=== PATIENT | female | born 1955 | race American Indian/Alaskan Native ===

== ENCOUNTER 2016-12-04 16:02 | Emergency (ER) | payer SELFPAY ==
[2016-12-04 16:37] VITALS: BP 142/90
--- NOTE | 2016-12-04 16:41 | Emergency Department Report ---
<PARIS HOLLOWAY M - Last Filed: 12/04/16 18:35> ED General Adult HPI - General Chief complaint: Abdominal Pain Stated complaint: ABD PAIN/POSS HERNIA Time Seen by Provider: 12/04/16 16:34 Source: patient Mode of arrival: Ambulatory Limitations: No Limitations - History of Present Illness Initial comments: PT states she has an umbilical hernia. PT states she first noticed the hernia in August. PT states she has surgery scheduled next month. PT states she has been told not to lift anything over 10lbs. However she has been lifting a 20 lb grandchild. PT states she has been given RX for [place] before for pain. PT states she is on Plavix due to previous CVA and is limited to what she can take for pain. PT states she is eating normally and having normal bms. MD Complaint: hernia pain -: Gradual, days(s) Location: abdomen Radiation: non-radiation Quality: sharp, constant Consistency: constant Improves with: none Worsens with: none Associated Symptoms: denies other symptoms. denies: loss of appetite, nausea/ vomiting - Related Data Previous Rx's Medication Instructions Recorded Last Taken Type HYDROcodone/APAP 5-325 [[place] 1 each PO Q6HR PRN #15 tablet 12/04/16 Unknown Rx 5/325] Allergies Allergy/AdvReac Type Severity Reaction Status Date / Time erythromycin base Allergy Nausea Verified 12/04/16 16:31 tramadol Allergy Shortness Verified 12/04/16 16:31 of Breath ED Review of Systems ROS: Stated complaint: ABD PAIN/POSS HERNIA Other details as noted in HPI Comment: All other systems reviewed and negative Constitutional: denies: chills, fever Cardiovascular: denies: chest pain Gastrointestinal: abdominal pain. denies: nausea, vomiting, diarrhea, constipation, hematemesis, hematochezia ED Past Medical Hx - Past Medical History Hx Hypertension: Yes Hx CVA: Yes - Surgical History Past Surgical History?: Yes - Medications Home Medications: Home Medications Medication Instructions Recorded Confirmed Last Taken Type HYDROcodone/APAP 5-325 [[place] 1 each PO Q6HR PRN #15 tablet 12/04/16 Unknown Rx 5/325] ED Physical Exam - General Limitations: No Limitations General appearance: alert, in no apparent distress - Head Head exam: Present: atraumatic, normocephalic - Eye Eye exam: Present: normal appearance. Absent: conjunctival injection - ENT ENT exam: Present: normal exam, normal external ear exam - Neck Neck exam: Present: normal inspection, full ROM. Absent: tenderness - Respiratory Respiratory exam: Absent: respiratory distress, wheezes, chest wall tenderness - Cardiovascular Cardiovascular Exam: Present: regular rate, normal rhythm - GI/Abdominal GI/Abdominal exam: Present: soft, tenderness (to soft umbilical hernia), normal bowel sounds. Absent: distended, guarding, rebound - Extremities Exam Extremities exam: Present: normal inspection, full ROM - Back Exam Back exam: Present: normal inspection, full ROM. Absent: tenderness, CVA tenderness (R), CVA tenderness (L) - Neurological Exam Neurological exam: Present: alert, oriented X3 - Psychiatric Psychiatric exam: Present: normal affect, normal mood - Skin Skin exam: Present: warm, dry, intact, normal color ED Course Vital Signs 12/04/16 12/04/16 16:31 18:10 Temperature 97.7 F Pulse Rate 62 Respiratory 18 20 Rate Blood Pressure 142/90 O2 Sat by Pulse 100 Oximetry - Reevaluation(s) Reevaluation #1: 12/04/16 17:52 After exam, pt states she does not want to see a QUALITY CLOTH TESTER. PT requesting to see MD, Dr Mckeon notified. Pt now states that she knows she isn't supposed to be taking other people's RXs medication but states she has been taking someone else's Tylenol #3 and she states it does not help with her pain. Reevaluation #2: 12/04/16 18:35 PT was also seen by Dr Mckeon - Pulse Oximetry Interpretation Digit-Finger Initial Pulse Oximetry Readin Actions Taken: none ED Medical Decision Making - Differential Diagnosis abd pain Critical Care Time: No Critical care attestation.: If time is entered above; I have spent that time in minutes in the direct care of this critically ill patient, excluding procedure time. ED Disposition Clinical Impression: Umbilical hernia Qualifiers: Obstruction and gangrene presence: without obstruction or gangrene Qualified Code(s): K42.9 - Umbilical hernia without obstruction or gangrene Disposition: DISCHARGED TO HOME OR SELFCARE Condition: Stable Instructions: Umbilical Hernia (ED) Additional Instructions: To medications as prescribed. hydrocodone is a narcotic and cause drowsiness and constipation. Do not drive or operate heavy machinery and take stool softeners as needed. Follow-up with the primary care doctor/clinic and surgeon provided. Prescriptions: HYDROcodone/APAP 5-325 [[place] 5/325] 1 each PO Q6HR PRN #15 tablet PRN Reason: Pain Referrals: VIVI OLIVO MD [Staff Physician] - 3-5 Days (surgeon ) TAMIKA LEBRON MD [Staff Physician] - 3-5 Days (Primary care doctor ) [facility] [Provider Group] - 3-5 Days <DONALD MCKEON - Last Filed: 12/05/16 00:37> ED Medical Decision Making - Medical Decision Making I personally evaluated patient. Patient states she has a reducible umbilical hernia and is not incarcerated. She states she's been lifting more than she should has develop worsening pain. No nausea or vomiting reported. Patient's taking Tylenol with codeine without improvement. [place] and is awaiting transfer of her Medicaid to [place] and therefore cannot see a primary care doctor or surgeon locally and therefore presents to the hospital requesting [place] for pain. I am able to push on hernia and partially reduce it. pt states it is fully reducible but it does not stay in. Dr Donald Mckeon - Differential Diagnosis abd pain , incarcerated hernia, chronic pain Critical Care Time: No ED Disposition Is pt being admited?: No Does the pt Need Aspirin: No Time of Disposition: 18:30
[2016-12-04] MEDS ORDERED: NORCO 5/325 PO ONE (18:05)
== END 2016-12-04 18:39 | disposition home or self-care (01) ==
LOC: ED 16:02
DX: K42.9 Umbilical hernia without obstruction or gangrene (principal); I10 Essential (primary) hypertension; Z86.73 Personal history of transient ischemic attack (TIA), and cerebral infarction without residual deficits
CPT/HCPCS: 99282

== ENCOUNTER 2017-12-27 02:49 | Emergency (ER) | payer SELFPAY | END 2017-12-27 03:50 | disposition left against medical advice (07) | LOC: ED 02:49 | DX: R07.9 Chest pain, unspecified (principal); Z53.21 Procedure and treatment not carried out due to patient leaving prior to being seen by health care provider | CPT/HCPCS: 93005; 93010 ==

== ENCOUNTER → 2018-01-24 | Emergency (ER) | payer SELFPAY ==
[2018-01-24 10:34] VITALS: BP 121/84
== END ==
LOC: ED 10:02
DX: R51 Headache (principal); Z53.21 Procedure and treatment not carried out due to patient leaving prior to being seen by health care provider

== ENCOUNTER 2018-02-03 10:22 | Emergency (ER) | payer MEDICAID ==
[2018-02-03 10:34] VITALS: BP 147/88
[2018-02-03] MEDS ORDERED: NORCO 5/325 PO ONE (11:57)
--- NOTE | 2018-02-03 12:04 | Emergency Department Report ---
HPI - General Chief Complaint: Dental/Oral Time Seen by Provider: 02/03/18 11:54 - HPI HPI: 62-year-old -[place] female presents to the emergency department with a complaint of lower jaw/gum pain. Patient has a history of teeth pulled and root canal but says that they left the tips of the roots in 3 places. She has an appointment with the dentist on February 10 and an appointment just before this with her quality inspector regarding whether or not to restart her blood thinners. She denies any drooling or trismus, fever, nausea or vomiting. She took a family member's Tylenol 3 and some Aleve and says that this is not been relieving her pain. ED Past Medical Hx - Past Medical History Hx Hypertension: Yes Hx CVA: Yes Hx Heart Attack/AMI: Yes - Surgical History Past Surgical History?: Yes Additional Surgical History: Breast - Social History Smoking Status: Current Every Day Smoker Substance Use Type: None - Medications Home Medications: Home Medications Medication Instructions Recorded Confirmed Last Taken Type HYDROcodone/APAP 5-325 [[place] 1 each PO Q6HR PRN #15 tablet 12/04/16 Unknown Rx 5/325] ED Review of Systems ROS: Stated complaint: FACIAL/NECK PAIN Other details as noted in HPI Comment: All other systems reviewed and negative Constitutional: denies: chills, fever Eyes: denies: eye pain, eye discharge, vision change ENT: dental pain. denies: throat pain Respiratory: denies: cough, shortness of breath, wheezing Cardiovascular: denies: chest pain, palpitations Gastrointestinal: denies: abdominal pain, nausea, diarrhea Genitourinary: denies: urgency, dysuria, discharge Musculoskeletal: denies: back pain, joint swelling, arthralgia Skin: denies: rash, lesions Neurological: denies: headache, weakness, paresthesias Physical Exam - Physical Exam Vital Signs: Vital Signs 02/03/18 10:30 Temperature 98.1 F Pulse Rate 58 L Respiratory 16 Rate Blood Pressure 147/88 O2 Sat by Pulse 99 Oximetry Physical Exam: GENERAL: The patient is well-developed well-nourished. HENT: Normocephalic. Atraumatic. Patient has moist mucous membranes. Oropharynx is clear without tonsillar hypertrophy, erythema or x-rays. The patient has no teeth in the lower jaw and I cannot see any visible root or nerve. No visible or palpable abscess. No drooling or trismus. EYES: Extraocular motions are intact. NECK: Supple. Trachea is midline. CHEST/LUNGS: Clear to auscultation. There is no respiratory distress noted. HEART/CARDIOVASCULAR: Regular. There is no tachycardia. There is no murmur. ABDOMEN: There is no abdominal distention. SKIN: There is no rash. There is no edema. There is no diaphoresis. NEURO: The patient is awake, alert, and oriented. The patient is cooperative. The patient has no focal neurologic deficits. The patient has normal speech. MUSCULOSKELETAL: There is no tenderness or deformity. There is no limitation range of motion. There is no evidence of acute injury. ED Course Vital Signs 02/03/18 10:30 Temperature 98.1 F Pulse Rate 58 L Respiratory 16 Rate Blood Pressure 147/88 O2 Sat by Pulse 99 Oximetry ED Medical Decision Making - Medical Decision Making Patient presents for pain medication as she says that she has discomfort to the lower jaw where she has some retained/exposed roots from previous root canal. I do not see any visible or palpable abscess. There is no drooling or trismus. There is no significant swelling. I cannot appreciate any retained or exposed roots. I checked the patient on the [place] prescription monitoring service and it shows that the patient has filled and been prescribed multiple scheduled narcotic medications including 1 prescription from 5 days ago in which she received 20 pills. She felt another prescription from 2 days prior to that and had another one about 1.5 weeks prior to that one. For this reason I did not feel comfortable prescribing narcotic pain medication, however she was given 1 pain pill in the emergency department as she had a confirmed airport shuttle driver. She was encouraged to follow up with her dentist. She was encouraged to return to the emergency department for reevaluation if there is any worsening of her symptoms, development of fever, or if any acute distress. - Differential Diagnosis toothache, tooth abscess, trigeminal neuralgia Critical Care Time: No Critical care attestation.: If time is entered above; I have spent that time in minutes in the direct care of this critically ill patient, excluding procedure time. ED Disposition Clinical Impression: Pain, dental Disposition: DC-01 TO HOME OR SELFCARE Is pt being admited?: No Condition: Stable Instructions: Toothache (ED) Additional Instructions: Please follow-up with your dentist as previously scheduled. Return to the emergency department with any worsening of your symptoms, signs or symptoms of infection, or any acute distress. Referrals: PRIMARY CARE, [Primary Care Provider] - [facility] Time of Disposition: 12:05
== END 2018-02-03 12:13 | disposition home or self-care (01) ==
LOC: ED 10:22
DX: K08.89 Other specified disorders of teeth and supporting structures (principal); I10 Essential (primary) hypertension; F17.200 Nicotine dependence, unspecified, uncomplicated; I25.2 Old myocardial infarction; Z86.73 Personal history of transient ischemic attack (TIA), and cerebral infarction without residual deficits
CPT/HCPCS: 99282

== ENCOUNTER 2018-03-11 04:19 | Emergency (ER) | payer MEDICAID ==
[2018-03-11 04:24] VITALS: BP 140/83
[2018-03-11 05:12] LABS: Basophils % (Auto) 0.5 % (0.0-1.8); Eosinophils # (Auto) 0.1 K/mm3 (0.0-0.4); Eosinophils % (Auto) 1.5 % (0.0-4.3); Hematocrit 40.4 % (30.3-42.9); Lymphocytes # (Auto) 3.4 K/mm3 (1.2-5.4); Lymphocytes % (Auto) 39.8 % (13.4-35.0); Mean Corpuscular HGB Conc 32 % (30-34); Mean Corpuscular Hemoglobin 28 pg (28-32); Mean Corpuscular Volume 85 fl (79-97); Monocytes # (Auto) 0.6 K/mm3 (0.0-0.8); Monocytes % (Auto) 6.6 % (0.0-7.3); Platelet Count 307 K/mm3 (140-440); Red Blood Count 4.73 M/mm3 (3.65-5.03); Red Cell Distribution Width 14.9 % (13.2-15.2)
[2018-03-11 05:31] LABS: BUN/Creatinine Ratio 20; Blood Urea Nitrogen 14 mg/dL (7-17); Calcium 8.8 mg/dL (8.4-10.2); Hemolysis Index 0
== END 2018-03-11 05:53 | disposition left against medical advice (07) ==
LOC: ED 04:19
DX: R07.9 Chest pain, unspecified (principal); Z53.21 Procedure and treatment not carried out due to patient leaving prior to being seen by health care provider
CPT/HCPCS: 36415; 80048; 84484; 85025; 93005; 93010

== ENCOUNTER 2018-05-09 00:08 | Emergency (ER) | payer OTHER, MEDICAID ==
[2018-05-09 00:24] VITALS: BP 124/85
== END 2018-05-09 04:40 | disposition left against medical advice (07) ==
LOC: ED 00:08
DX: M54.2 Cervicalgia (principal); M54.9 Dorsalgia, unspecified; Z53.21 Procedure and treatment not carried out due to patient leaving prior to being seen by health care provider

== ENCOUNTER 2019-05-25 20:17 | Emergency (ER) | payer MEDICAID, OTHER ==
--- NOTE | 2019-05-25 20:34 | Event Note ---
ED Screening Note ED Screening Note: pt presents to the ED with c/o CP radiating down the right arm that began tonight around 5:45 PM states it lasted 15-20 minutes associated SOB no N/V PMHx HTN, afib, CVA on eliquis This initial assessment/diagnostic orders/clinical plan/treatment(s) is/are subject to change based on patients health status, clinical progression and re- assessment by fellow clinical providers in the ED. Further treatment and workup at subsequent clinical providers discretion. Patient/guardian urged not to elope from the ED as their condition may be serious if not clinically assessed and managed. Initial orders include: CP protocol
[2019-05-25 20:48] LABS: Basophils # (Auto) 0.1 K/mm3 (0.0-0.1); Basophils % (Auto) 0.6 % (0.0-1.8); Eosinophils # (Auto) 0.2 K/mm3 (0.0-0.4); Eosinophils % (Auto) 1.5 % (0.0-4.3); Hematocrit 41.1 % (30.3-42.9); Hemoglobin 13.2 gm/dl (10.1-14.3); Lymphocytes # (Auto) 3.9 K/mm3 (1.2-5.4); Lymphocytes % (Auto) 37.4 % (13.4-35.0); Mean Corpuscular HGB Conc 32 % (30-34); Mean Corpuscular Volume 85 fl (79-97); Monocytes # (Auto) 0.6 K/mm3 (0.0-0.8); Monocytes % (Auto) 5.9 % (0.0-7.3); Platelet Count 332 K/mm3 (140-440); Red Blood Count 4.82 M/mm3 (3.65-5.03); Red Cell Distribution Width 15.5 % (13.2-15.2)
[2019-05-25 21:15] LABS: Alanine Aminotransferase 13 units/L (7-56); Albumin 4.1 g/dL (3.9-5); BUN/Creatinine Ratio 15; Blood Urea Nitrogen 15 mg/dL (7-17); Calcium 8.9 mg/dL (8.4-10.2); Hemolysis Index 14
--- NOTE | 2019-05-25 21:25 | XRay Report ---
CHEST 2 VIEWS 8:50 PM INDICATION / CLINICAL INFORMATION: Chest pain with right shoulder/arm pain starting at 1800 hours. Difficulty breathing. COMPARISON: 12/24/2009. FINDINGS: SUPPORT DEVICES: None. HEART / MEDIASTINUM: The heart size and pulmonary vasculature are normal. The thoracic aorta is mario l in caliber without aneurysm. LUNGS / PLEURA: No significant pulmonary or pleural abnormality. No pneumothorax. ADDITIONAL FINDINGS: No significant additional findings. IMPRESSION: No acute abnormality or significant change. Signer Name: Sedrick Hayward MD Signed: 05/25/2019 9:21 PM Workstation Name: [id number]
--- NOTE | 2019-05-25 22:05 | Emergency Department Report ---
ED Chest Pain HPI - General Chief Complaint: Chest Pain Stated Complaint: CHEST TIGHTENING, RT SIDE PAIN Time Seen by Provider: 05/25/19 20:32 Source: patient Mode of arrival: Ambulatory Limitations: No Limitations - History of Present Illness Initial Comments: Mrs. Tate is a 63 yo female with hx of HTN, atrial fibrillation, CVA, depression anxiety "heart leakage" who presents with chest pain which began this evening. Earlier today, she was evaluated by urgent care for cold symptoms. She developed sharp right chest pain with radiating down right arm 6 pm. Symptoms have subsided. She requests troponin test. She is also concerned for heart "l eaking". One month ago, her pediatric genetic counselor Dr. Gerber informed him that she has leaky valve in her heart. She has yet to follow up. At this time she desires to go home if her tests are normal. MD Complaint: chest pain -: Gradual, This evening Onset: during rest Pain Location: right chest Pain Radiation: LUE Severity: moderate Quality: sharp Consistency: now resolved Improves With: nothing Worsens With: nothing Aspirin use within the Past 7 Days: (1) Yes - Related Data Previous Rx's Medication Instructions Recorded Last Taken Type HYDROcodone/APAP 5-325 [[place] 1 each PO Q6HR PRN #15 tablet 12/04/16 Unknown Rx 5/325] Allergies Allergy/AdvReac Type Severity Reaction Status Date / Time erythromycin base Allergy Nausea Verified 03/11/18 04:48 Iodinated Contrast Media Allergy Unknown Verified 05/25/19 20:38 tramadol Allergy Shortness Verified 03/11/18 04:48 of Breath Heart Score - HEART Score History: Slightly suspicious EKG: Non-specific Age: 45-65 Risk factors: 1-2 risk factors Troponin: < normal limit HEART Score: 3 ED Review of Systems ROS: Stated complaint: CHEST TIGHTENING, RT SIDE PAIN Other details as noted in HPI Comment: All other systems reviewed and negative Constitutional: denies: fever, malaise Respiratory: cough, shortness of breath Cardiovascular: chest pain ED Past Medical Hx - Past Medical History Hx Hypertension: Yes Hx CVA: Yes Hx Heart Attack/AMI: Yes Hx Asthma: Yes Additional medical history: AFIB,MVP - Surgical History Additional Surgical History: Breast - Social History Smoking Status: Never Smoker Substance Use Type: None - Medications Home Medications: Home Medications Medication Instructions Recorded Confirmed Last Taken Type HYDROcodone/APAP 5-325 [[place] 1 each PO Q6HR PRN #15 tablet 12/04/16 Unknown Rx 5/325] ED Physical Exam - General Limitations: No Limitations General appearance: alert, in no apparent distress, other (frequent cough) - Head Head exam: Present: atraumatic, normocephalic - Eye Eye exam: Present: normal appearance - ENT ENT exam: Present: mucous membranes moist - Neck Neck exam: Present: normal inspection, full ROM - Respiratory Respiratory exam: Present: normal lung sounds bilaterally. Absent: respiratory distress, wheezes, rales, rhonchi - Cardiovascular Cardiovascular Exam: Present: regular rate, normal rhythm, normal heart sounds. Absent: systolic murmur, diastolic murmur, rubs, gallop - GI/Abdominal GI/Abdominal exam: Present: soft, normal bowel sounds. Absent: distended, tenderness, guarding, rebound - Extremities Exam Extremities exam: Present: normal inspection - Neurological Exam Neurological exam: Present: alert, oriented X3 - Psychiatric Psychiatric exam: Present: normal affect, normal mood - Skin Skin exam: Present: warm, dry, intact, normal color. Absent: rash ED Course Vital Signs 05/25/19 20:32 Temperature 98 F Pulse Rate 59 L Respiratory 20 Rate Blood Pressure 145/88 O2 Sat by Pulse 99 Oximetry ED Medical Decision Making - Lab Data Result diagrams: 05/25/19 20:39 05/25/19 20:39 - Radiology Data Radiology results: report reviewed - Medical Decision Making Ms. Tate presents with atypical chest pain. She does have signs and symptoms of acute bronchitis properly treated by urgent care. Troponin 2 is negative. She'll follow with Dr. Gerber pediatric genetic counselor tomorrow Critical care attestation.: If time is entered above; I have spent that time in minutes in the direct care of this critically ill patient, excluding procedure time. ED Disposition Clinical Impression: Chest pain, Bronchitis Disposition: -01 TO HOME OR SELFCARE Is pt being admited?: No Does the pt Need Aspirin: No Condition: Stable Instructions: Chest Pain (ED), Acute Bronchitis (ED) Referrals: PRIMARY CAREMD [Primary Care Provider] - 3-5 Days LORRAINE GERBER MD [Staff Physician] - 2-3 Days
[2019-05-25 23:55] VITALS: BP 127/82
== END 2019-05-25 23:20 | disposition home or self-care (01) ==
LOC: ED 20:17
DX: J40 Bronchitis, not specified as acute or chronic (principal); I10 Essential (primary) hypertension; I25.2 Old myocardial infarction; Z86.73 Personal history of transient ischemic attack (TIA), and cerebral infarction without residual deficits; Z98.890 Other specified postprocedural states; Z86.79 Personal history of other diseases of the circulatory system; Z91.041 Radiographic dye allergy status; Z88.6 Allergy status to analgesic agent
CPT/HCPCS: 36415; 71046; 80053; 84484; 85025; 93005; 93010

== ENCOUNTER 2021-03-11 02:05 | Emergency (ER) | payer MEDICAID | END 2021-03-11 02:37 | disposition left against medical advice (07) | LOC: ED 02:05 ==